=== PATIENT | female | born 1955 | race Caucasian/White ===

== ENCOUNTER → 2016-09-06 | Outpatient (CLI) | payer OTHER | LOC: FIMAGING 13:57 | DX: Z12.31 Encounter for screening mammogram for malignant neoplasm of breast (principal); Z80.3 Family history of malignant neoplasm of breast | CPT/HCPCS: G0202 ==

== ENCOUNTER → 2017-10-19 | Outpatient (CLI) | payer OTHER | LOC: FIMAGING 10:51 | PROVIDERS: ATTEND Nurse Practitioner Women's Health | DX: Z12.31 Encounter for screening mammogram for malignant neoplasm of breast (principal); Z13.820 Encounter for screening for osteoporosis; M85.89 Other specified disorders of bone density and structure, multiple sites ==

== ENCOUNTER → 2017-11-01 | Outpatient (CLI) | payer OTHER | LOC: FIMAGING 11:52 | PROVIDERS: ATTEND Nurse Practitioner Women's Health | DX: N63.21 Unspecified lump in the left breast, upper outer quadrant (principal) ==

== ENCOUNTER → 2017-11-20 | Outpatient (CLI) | payer OTHER ==
[~2017-11-20] MED LIST: BUPIVACAINE 0.5% 30 ML SDV ONE; LIDOCAINE 1% 300 MG/30 ML SDV ONE; THROMBIN (BOVINE) 5,000 UNIT VIAL TP ONE
== END ==
LOC: FIMAGING 07:18
PROVIDERS: ATTEND Nurse Practitioner Women's Health
PROC: 0HBU3ZX Excision of Left Breast, Percutaneous Approach, Diagnostic (ICD-10-PCS; principal; 2017-11-20)
DX: D24.2 Benign neoplasm of left breast (principal)

== ENCOUNTER → 2018-07-17 | Outpatient (CLI) | payer OTHER | LOC: FIMAGING 09:40 | PROVIDERS: ATTEND Nurse Practitioner Women's Health | DX: Z09 Encounter for follow-up examination after completed treatment for conditions other than malignant neoplasm (principal); N60.22 Fibroadenosis of left breast ==

== ENCOUNTER → 2018-10-23 | Outpatient (CLI) | payer OTHER | LOC: FIMAGING 11:21 | PROVIDERS: ATTEND Obstetrics & Gynecology | DX: Z12.31 Encounter for screening mammogram for malignant neoplasm of breast (principal); Z80.3 Family history of malignant neoplasm of breast ==